=== PATIENT | female | born 1965 | race Two or more races ===

== ENCOUNTER 2019-05-13 21:20 | Inpatient (IN) | payer BC, OTHER ==
[~2019-05-13] VITALS: Ht 165.1 cm; Wt 75.9 kg
[2019-05-13] MEDS ORDERED: IV NORMAL SALINE 500 ML BAG IV ONE (21:45)
[2019-05-13] MEDS ORDERED: ONDANSETRON 4 MG/2 ML VIAL IV ONE ×2 (21:45)
[2019-05-13] MEDS ORDERED: HYDROMORPHONE 1 MG/1 ML DISP.SYRIN IV ONE (21:45)
[2019-05-13 22:05] LABS: BASOPHILS % (AUTO) 0.7 % (0.0-2.0); EOSINOPHILS % (AUTO) 0.4 % (0.0-7.0); HEMOGLOBIN 7.6 g/dL (10.9-14.3); LYMPHOCYTES % (AUTO) 20.4 % (20.5-51.5); MEAN CORPUSCULAR HEMOGLOBIN 31.7 uug (24.7-32.8); MEAN CORPUSCULAR HGB CONC 32 g/dL (32.3-35.6); MEAN CORPUSCULAR VOLUME 99.5 fL (75.5-95.3); MONOCYTES # (AUTO) 0.4 K/uL (2.0-10.0); MONOCYTES % (AUTO) 7.2 % (0.0-11.0); NEUTROPHILS # (AUTO) 3.6 K/uL (1.8-8.9); NEUTROPHILS % (AUTO) 71.3 % (38.5-71.5); PLATELET COUNT (AUTO) 63 K/uL (179-408)
[2019-05-13 22:08] LABS: RED BLOOD CELL COUNT(AUTO) 2.41 MIL/uL (3.63-4.92)
[2019-05-13 22:13] LABS: CREATININE 2.5 mg/dL (0.6-1.3); POTASSIUM 4.1 mmol/L (3.5-5.1)
[2019-05-13 22:19] LABS: BILIRUBIN,DIRECT 0.3 mg/dL (0.0-0.2); BILIRUBIN,TOTAL 0.9 mg/dL (0.2-1.0); TOTAL PROTEIN, SERUM 5.3 g/dL (6.4-8.2)
[2019-05-13] MEDS ORDERED: HYDROMORPHONE 1 MG/1 ML DISP.SYRIN ONE (22:20)
[2019-05-13] MEDS ORDERED: ONDANSETRON 4 MG/2 ML VIAL ONE ×2 (22:20→22:39)
--- NOTE | 2019-05-13 22:28 | NUR ---
engineering technology instructor Florinda called for critical lab result, Toponin of 0.852. Dr. Curry made aware.
[2019-05-13] MEDS ORDERED: FUROSEMIDE 40 MG/4 ML VIAL ONE (22:39)
--- NOTE | 2019-05-13 22:40 | NUR ---
CALL FOR BED DONE PT WILL BE ADMITTED TO TELE 324 PETRA MAGDALENO
[2019-05-13] MEDS ORDERED: NITROGLYCERIN 0.4 MG/TAB BOTTLE SL PRN (22:45)
[2019-05-13] MEDS ORDERED: FUROSEMIDE 40 MG/4 ML VIAL IV ONE (22:45)
[2019-05-13 22:50] LABS: LYMPHOCYTES % (MANUAL) 19 % (20-40); METAMYELOCYTES % 1 % (0-1); MONOCYTES % (MANUAL) 8 % (2-10); NEUTROPHILS % (MANUAL) 72 % (42-75)
--- NOTE | 2019-05-13 23:00 | NUR ---
PT WILL BE ADMITTED UNDER DR MAGDALENO DX CHF TELE RM 324 BELONGINGS LIST DONE AND SIGNED ALL BELONGINGS ACCOUNTED FOR
[2019-05-13] MEDS ORDERED: LISINOPRIL 10 MG TABLET ONE (23:21)
[2019-05-13] MEDS ORDERED: CALC667T6 PO (23:32)
[2019-05-13] MEDS ORDERED: LORA0.5T PO (23:32)
[2019-05-13] MEDS ORDERED: PROP20TA7 PO (23:32)
[2019-05-13] MEDS ORDERED: EPOE3000 IJ (23:32)
[2019-05-13] MEDS ORDERED: PANT40TA2 PO (23:32)
[2019-05-13] MEDS ORDERED: METH-406 PO (23:32)
[2019-05-13] MEDS ORDERED: OXYC5CAP18 PO (23:32)
[2019-05-13] MEDS ORDERED: CLON0.1T PO (23:32)
[2019-05-13] MEDS ORDERED: INSU100V11 (23:32)
[2019-05-13] MEDS ORDERED: GLUC1KIT IM (23:32)
[2019-05-13] MEDS ORDERED: ALBU2.5V13 NEB (23:32)
[2019-05-13] MEDS ORDERED: ERGO500040 PO (23:32)
[2019-05-13] MEDS ORDERED: LEVO112T5 PO (23:32)
[2019-05-13] MEDS ORDERED: GABA300C PO (23:32)
[2019-05-13] MEDS ORDERED: ALBU8.5H8 INH (23:32)
--- NOTE | 2019-05-13 23:47 | NUR ---
HAND OFF AND SBAR GIVEN TO GORAN RN PT WILL BE ADMITTED TO TELE RM [address] MAGDALENO DX: CHF ALL BELONGINGS W/ PT TRANSPORTED VIA [facility] FOR INCURABLESX2 UP BED AT LOWEST POSITION
--- NOTE | 2019-05-14 00:35 | NUR ---
PT WAS TRANSPORTED TO TELE 324 VIA GURNEY BP AT 126/38MMHG SPO2 AT 95% RA FULLCODE PT WAS PLACED ON SLIDER ASSISTED BY ZOYA TO TRANSFER TO BED NOTICED PT STOPPED TALKING AND ROLLED BOTH EYES FOR LESS THAN 30SECS PT AFTERWARDS RESPONDED TO LIGHT TOUCH AND NAME, ABLE TO LOOK AT SPEAKER AND COMPLIANT BUT WEAK. NON AMBULATORY. ASSISTED WITH MOVING TO ROOM 315 INSTRUCTED BY WEAPONS ENGINEER MS MARY RN BP AT 116/72MMHG WITH SPO2 AT 94% WITH OXYGEN PER NC AT 3LPM, PLACED ON TELE MONITOR PT IS NOW RESPONDING AND TALKING STATED"I DO NOT KNOW WHAT HAPPENED. I AM SLEEPY" SIDERAILSX2 UP, BED AT LOWEST POSITION
--- NOTE | 2019-05-14 00:36 | NUR ---
RECEIVED PT IN ER VIA [facility]. DX: CHF EXACERBATION. UNDER THE CARE OF DR. PATTON. PT SHOWS NO SIGNS OF ACUTE DISTRESS. ADMISSION PROCESS AND CARE PLAN INITIATED.BELONGING LIST DONE. SAFETY AND COMFORT PROVIDED. WILL CONTINUE TO MONITOR.
--- NOTE | 2019-05-14 00:38 | NUR ---
FREQUENT MONITORING FOR THE PT. PT VITAL SIGNS WITHIN NORMAL LIMIT. WILL CONTINUE TO MONITOR.
[2019-05-14 00:50] VITALS: BP 112/64
--- NOTE | 2019-05-14 03:54 | NUR ---
PT COMPLAINT OF 9/10 GENERALIZED PAIN. BRIDGET NAVAS ORDERED MORPHINE FOR PT.
[2019-05-14 04:00] VITALS: BP 130/63
[2019-05-14] MEDS ORDERED: ONDANSETRON 4 MG/2 ML VIAL IV PRN (04:00)
--- NOTE | 2019-05-14 06:32 | NUR ---
PT SLEPT INTERMITTENTLY. PT SHOWS NO SIGNS OF ACUTE DISTRESS. IV INTACT. PT ON NASAL CANNULA. MORPHINE ORDERED BUT WHEN I WAS ABOUT TO GIVE THE PT. PT WAS SLEEPING. WHEN PT WAS AWAKE PT DIDN'T ASK FOR HER PAIN MEDICATION. SAFETY AND COMFORT PROVIDED. WILL ENDORSE TO INCOMING NURSE FOR CONTINUITY OF CARE.
[2019-05-14 07:06] LABS: BASOPHILS % (AUTO) 0.6 % (0.0-2.0); EOSINOPHILS % (AUTO) 0.9 % (0.0-7.0); HEMATOCRIT 23.2 % (31.2-41.9); HEMOGLOBIN 7.5 g/dL (10.9-14.3); LYMPHOCYTES # (AUTO) 1.1 K/uL (20.0-40.0); LYMPHOCYTES % (AUTO) 23.1 % (20.5-51.5); MEAN CORPUSCULAR HEMOGLOBIN 32.3 uug (24.7-32.8); MEAN CORPUSCULAR HGB CONC 32 g/dL (32.3-35.6); MEAN CORPUSCULAR VOLUME 100.4 fL (75.5-95.3); MONOCYTES # (AUTO) 0.4 K/uL (2.0-10.0); MONOCYTES % (AUTO) 8.1 % (0.0-11.0); NEUTROPHILS # (AUTO) 3.2 K/uL (1.8-8.9); NEUTROPHILS % (AUTO) 67.3 % (38.5-71.5); PLATELET COUNT (AUTO) 54 K/uL (179-408); WHITE BLOOD COUNT (AUTO) 4.7 K/uL (3.8-11.8)
--- NOTE | 2019-05-14 07:30 | NUR ---
on bed, awake, waiting for breakfast, made aware change of time fall back, verbalized understanding. return back to sleep .
[2019-05-14 08:07] LABS: RED BLOOD CELL COUNT(AUTO) 2.31 MIL/uL (3.63-4.92)
[2019-05-14] MEDS: BLOOD SUGAR DIAGNOSTIC 1 EACH STRIP VI SCH ×4 (08:30→20:32)
[2019-05-14] MEDS ORDERED: DEXTROSE 50% 50 ML DISP.SYRIN IV PRN (08:30)
--- NOTE | 2019-05-14 08:30 | NUR ---
blood sugar refused, patient ate already. will do noon schedule
[2019-05-14 08:56] LABS: BILIRUBIN,TOTAL 0.7 mg/dL (0.2-1.0); CREATININE 2.6 mg/dL (0.6-1.3); POTASSIUM 4.4 mmol/L (3.5-5.1); TOTAL PROTEIN, SERUM 5.2 g/dL (6.4-8.2)
[2019-05-14] MEDS ORDERED: LISINOPRIL 10 MG TABLET PO ONE (09:00)
--- NOTE | 2019-05-14 09:25 | NUR ---
2d echo done, left message for dr olivier . Dr abdul also aware of result , no new order.
[2019-05-14 11:10] VITALS: BP 144/71
[2019-05-14 11:44] LABS: BAND % (MANUAL) 1 % (0-10); EOSINOPHILS % (MANUAL) 2 % (0-8); LYMPHOCYTES % (MANUAL) 22 % (20-40); METAMYELOCYTES % 1 % (0-1); MONOCYTES % (MANUAL) 8 % (2-10); NEUTROPHILS % (MANUAL) 66 % (42-75)
--- NOTE | 2019-05-14 12:00 | NUR ---
resting well, fluid restriction reinforced, patient likes her milk and soda sugarfree
[2019-05-14] MEDS: INSULIN REGULAR, HUMAN 300 UNIT/3 ML VIAL SQ PRN ×3 (12:02→20:50)
[2019-05-14] MEDS: MORPHINE SULFATE 4 MG/1 ML DISP.SYRIN IV PRN ×2 (15:24→20:46)
[2019-05-14 15:45] VITALS: BP 147/72
--- NOTE | 2019-05-14 16:00 | NUR ---
dialysis started at this time
--- NOTE | 2019-05-14 17:24 | NUR ---
bs 213, insulin not given , still on dialysis, will recheck after dialysis
--- NOTE | 2019-05-14 18:30 | NUR ---
dialysis done 2500 ml fluids obtained
--- NOTE | 2019-05-14 18:50 | NUR ---
larry valle 188, dinner served
[2019-05-14] MEDS ORDERED: LORAZEPAM 0.5 MG TABLET PO PRN (19:15)
[2019-05-14 19:44] VITALS: BP 127/58
--- NOTE | 2019-05-14 22:23 | NUR ---
patient ordered pizza despite my education about her diabetes, CHF, and other medical conditions. I advised her against ordering pizza due to the sodium contact and she replied that she still wanted to order it.
[2019-05-15 00:09] VITALS: BP 114/55
[2019-05-15] MEDS: ALBUTEROL SULFATE 2.5 MG/ 0.5 ML NEBU NEB SCH ×5 (01:30→23:34)
[2019-05-15] MEDS: MORPHINE SULFATE 4 MG/1 ML DISP.SYRIN IV PRN ×4 (04:31→23:12)
[2019-05-15 04:32] VITALS: BP 150/60
--- NOTE | 2019-05-15 05:57 | NUR ---
patient slept intermittently. a/o x1. no signs of acute distress and v/s stable throughout the night. safety and comfort measures provided at all times. patient educated this morning regarding strict fluid intake and diet. require reinforcement. will continue plan of care and endorse accordingly.
[2019-05-15] MEDS: LEVOTHYROXINE SODIUM 112 MCG TABLET PO SCH (06:10)
[2019-05-15] MEDS: PANTOPRAZOLE SODIUM 40 MG TABLET.DR PO SCH (06:10)
[2019-05-15] MEDS: BLOOD SUGAR DIAGNOSTIC 1 EACH STRIP VI SCH ×4 (06:40→21:21)
[2019-05-15] MEDS: PROPRANOLOL HCL 20 MG TABLET PO SCH ×2 (08:34→17:43)
[2019-05-15] MEDS: CALCIUM ACETATE 667 MG CAPSULE PO SCH ×3 (08:34→17:41)
[2019-05-15] MEDS: GABAPENTIN 300 MG CAPSULE PO SCH ×3 (08:34→17:41)
[2019-05-15] MEDS: INSULIN REGULAR, HUMAN 300 UNIT/3 ML VIAL SQ PRN ×3 (08:38→17:46)
--- NOTE | 2019-05-15 08:58 | NUR ---
Received pt resting in bed. Pt. denies SOB/ difficulty breathing. Pt. denies pain/ discomfort. IV in L upper arm 22 gauge intact patent saline lock. Pt. on 2 L NC. Safety measures in place. Call light within reach. will continue to monitor pt.
[2019-05-15] MEDS ORDERED: ERGOCALCIFEROL 50,000 UNIT CAPSULE PO SCH (09:00)
--- NOTE | 2019-05-15 10:20 | NUR ---
Pt. getting dialyzed with dialysis nurse. Will give rest of morning medication after and pain medication.
[2019-05-15] MEDS: METHOCARBAMOL 500 MG TABLET PO SCH ×3 (10:59→17:41)
[2019-05-15 11:33] VITALS: BP 157/67
[2019-05-15] MEDS: METOPROLOL SUCCINATE XL 25 MG TAB.SR.24H PO SCH (12:15)
[2019-05-15 15:54] VITALS: BP 124/64
--- NOTE | 2019-05-15 19:15 | NUR ---
Received pt resting in bed. No complaint of SOB, pain, or discomfort. IV in left UA 22G intact and patent. O2 NC 2L in place. Safety protocols in place. Bed alarm on. Call light within reach. Will monitor patient accordingly.
--- NOTE | 2019-05-15 19:30 | NUR ---
pt. compliant with plan of care. pt. took all medication. pt. resting in bed on 2 L NC. IV in L Upper arm 22 gauge intact patent saline. safety measures in place. all needs met. call light within reach. will endorse to pm nurse
[2019-05-15 20:02] VITALS: BP 127/60
[2019-05-15] MEDS: INSULIN REGULAR, HUMAN 300 UNITS/3 ML VIAL SQ PRN (21:27)
[2019-05-16] VITALS (9 sets, daily range): BP systolic 103–130; BP diastolic 54–70
[2019-05-16] MEDS: ALBUTEROL SULFATE 2.5 MG/ 0.5 ML NEBU NEB SCH ×3 (05:26→18:00)
[2019-05-16] MEDS: LEVOTHYROXINE SODIUM 112 MCG TABLET PO SCH (06:10)
[2019-05-16] MEDS: PANTOPRAZOLE SODIUM 40 MG TABLET.DR PO SCH (06:11)
[2019-05-16] MEDS: BLOOD SUGAR DIAGNOSTIC 1 EACH STRIP VI SCH ×4 (06:43→21:14)
--- NOTE | 2019-05-16 06:47 | NUR ---
Patient slept intermittently throughout the night, no distress noted. Ensured safety and comfort. Strict intake and output observed. Will continue plan of care and endorse accordingly.
--- NOTE | 2019-05-16 07:30 | NUR ---
Patient calm and comfortable resting in bed with no signs of distress; patient will continue to be monitored.
[2019-05-16] MEDS: CALCIUM ACETATE 667 MG CAPSULE PO SCH ×3 (08:16→17:16)
[2019-05-16] MEDS: GABAPENTIN 300 MG CAPSULE PO SCH ×3 (08:16→17:16)
[2019-05-16] MEDS: METHOCARBAMOL 500 MG TABLET PO SCH ×3 (08:16→17:16)
[2019-05-16] MEDS: METOPROLOL SUCCINATE XL 25 MG TAB.SR.24H PO SCH (08:17)
[2019-05-16] MEDS: PROPRANOLOL HCL 20 MG TABLET PO SCH ×2 (08:18→17:16)
[2019-05-16 09:06] LABS: HEPATITIS B SURFACE AB Reactive (.); HEPATITIS B SURFACE AG Negative (Negative)
[2019-05-16] MEDS: MORPHINE SULFATE 4 MG/1 ML DISP.SYRIN IV PRN ×2 (09:45→19:56)
[2019-05-16 12:14] LABS: CREATININE 2.6 mg/dL (0.6-1.3); POTASSIUM 4.4 mmol/L (3.5-5.1)
[2019-05-16] MEDS ORDERED: EPOETIN ALFA 10,000 UNITS/ML VIAL SQ ONE (12:30)
[2019-05-16 12:45] LABS: BILIRUBIN,TOTAL 0.7 mg/dL (0.2-1.0); MAGNESIUM 1.8 mg/dL (1.8-2.4); PHOSPHOROUS 3.6 mg/dL (2.5-4.9); TOTAL PROTEIN, SERUM 4.6 g/dL (6.4-8.2)
[2019-05-16 13:27] LABS: EOSINOPHILS # (AUTO) 0.1 K/uL (0.0-0.7); LYMPHOCYTES # (AUTO) 0.6 K/uL (20.0-40.0); MONOCYTES # (AUTO) 0.4 K/uL (2.0-10.0)
[2019-05-16 13:29] LABS: BASOPHILS % (AUTO) 0.6 % (0.0-2.0); EOSINOPHILS % (AUTO) 1.3 % (0.0-7.0); HEMATOCRIT 22.4 % (31.2-41.9); LYMPHOCYTES % (AUTO) 14.7 % (20.5-51.5); MEAN CORPUSCULAR HEMOGLOBIN 32.1 uug (24.7-32.8); MEAN CORPUSCULAR HGB CONC 31 g/dL (32.3-35.6); MEAN CORPUSCULAR VOLUME 102.3 fL (75.5-95.3); MONOCYTES % (AUTO) 10.2 % (0.0-11.0); NEUTROPHILS % (AUTO) 73.2 % (38.5-71.5)
[2019-05-16 13:33] LABS: RED BLOOD CELL COUNT(AUTO) 2.19 MIL/uL (3.63-4.92)
[2019-05-16 13:34] LABS: PLATELET COUNT (AUTO) 42 K/uL (179-408)
[2019-05-16] MEDS: INSULIN REGULAR, HUMAN 300 UNIT/3 ML VIAL SQ PRN ×2 (14:19→17:18)
--- NOTE | 2019-05-16 19:30 | NUR ---
Patient awake in bed. AO x 4. Complaints of pain. Will medicate appropriately. Denies SOB. IV in left A/C intact and flushing, hep lock. Safety protocols in place. Will continue to monitor
--- NOTE | 2019-05-16 19:39 | NUR ---
Patient with stable vital signs through out shift with baseline mental status.Patient had dialysis today with an output 2000ml ; MD ordered blood transfusion 1 unit due to hemoglobin of 5; transfusion will be done by oncoming nurse; report given to oncoming nurse.
--- NOTE | 2019-05-16 20:50 | NUR ---
Informed consent for blood transfusion obtained.
[2019-05-16] MEDS: INSULIN REGULAR, HUMAN 300 UNITS/3 ML VIAL SQ PRN (21:16)
[2019-05-17] VITALS (7 sets, daily range): BP systolic 104–139; BP diastolic 62–87
[2019-05-17] MEDS: ALBUTEROL SULFATE 2.5 MG/ 0.5 ML NEBU NEB SCH ×4 (01:31→19:33)
--- NOTE | 2019-05-17 01:49 | NUR ---
Blood transfusion of 1 unit ended. Vital signs taken before, during, and after are within normal limits. No signs/ symptoms of transfusion reaction. Will continue to monitor patient.
--- NOTE | 2019-05-17 05:39 | NUR ---
Patient slept intermittently throughout the night. One unit of blood given on shift. No signs/ symptoms of transfusion reaction. Vital signs within normal limits. Will endorse to oncoming shift.
[2019-05-17] MEDS: PANTOPRAZOLE SODIUM 40 MG TABLET.DR PO SCH (06:08)
[2019-05-17] MEDS: LEVOTHYROXINE SODIUM 112 MCG TABLET PO SCH (06:08)
[2019-05-17] MEDS: BLOOD SUGAR DIAGNOSTIC 1 EACH STRIP VI SCH ×4 (07:12→21:09)
--- NOTE | 2019-05-17 07:30 | NUR ---
Patient calm and comfortable with no signs of distress; patient will continue to be monitored.
[2019-05-17 07:38] LABS: BASOPHILS % (AUTO) 0.6 % (0.0-2.0); EOSINOPHILS # (AUTO) 0.1 K/uL (0.0-0.7); LYMPHOCYTES # (AUTO) 0.7 K/uL (20.0-40.0); MONOCYTES # (AUTO) 0.4 K/uL (2.0-10.0); NEUTROPHILS # (AUTO) 2.2 K/uL (1.8-8.9)
[2019-05-17 07:40] LABS: EOSINOPHILS % (AUTO) 2.2 % (0.0-7.0); HEMATOCRIT 27.7 % (31.2-41.9); HEMOGLOBIN 8.7 g/dL (10.9-14.3); LYMPHOCYTES % (AUTO) 19.6 % (20.5-51.5); MEAN CORPUSCULAR HGB CONC 32 g/dL (32.3-35.6); MEAN CORPUSCULAR VOLUME 101.2 fL (75.5-95.3); MONOCYTES % (AUTO) 12.5 % (0.0-11.0); NEUTROPHILS % (AUTO) 65.1 % (38.5-71.5); RED BLOOD CELL COUNT(AUTO) 2.74 MIL/uL (3.63-4.92); WHITE BLOOD COUNT (AUTO) 3.4 K/uL (3.8-11.8)
[2019-05-17 07:50] LABS: CREATININE 2.5 mg/dL (0.6-1.3); MAGNESIUM 1.9 mg/dL (1.8-2.4); POTASSIUM 4.8 mmol/L (3.5-5.1)
[2019-05-17 07:53] LABS: PLATELET COUNT (AUTO) 34 K/uL (179-408)
[2019-05-17] MEDS: GABAPENTIN 300 MG CAPSULE PO SCH ×3 (09:30→17:19)
[2019-05-17] MEDS: METHOCARBAMOL 500 MG TABLET PO SCH ×3 (09:30→17:19)
[2019-05-17] MEDS: CALCIUM ACETATE 667 MG CAPSULE PO SCH ×3 (09:30→17:19)
[2019-05-17] MEDS: MORPHINE SULFATE 4 MG/1 ML DISP.SYRIN IV PRN ×2 (09:38→17:19)
[2019-05-17] MEDS: METOPROLOL SUCCINATE XL 25 MG TAB.SR.24H PO SCH (09:39)
[2019-05-17] MEDS: PROPRANOLOL HCL 20 MG TABLET PO SCH ×2 (09:40→17:19)
[2019-05-17 09:52] LABS: LYMPHOCYTES % (MANUAL) 21 % (20-40); MONOCYTES % (MANUAL) 12 % (2-10); MYELOCYTES % 1 % (0-0)
[2019-05-17 09:53] LABS: NEUTROPHILS % (MANUAL) 66 % (42-75)
[2019-05-17] MEDS: INSULIN REGULAR, HUMAN 300 UNIT/3 ML VIAL SQ PRN (12:22)
--- NOTE | 2019-05-17 19:27 | NUR ---
Patient calm and comfortable through out shift ; with no signs of distress; Patient had dialysis with output of 1500ml ; patient medication compliant ; Report given to oncoming nurse.
[2019-05-17] MEDS: INSULIN REGULAR, HUMAN 300 UNITS/3 ML VIAL SQ PRN (21:14)
[2019-05-18] MEDS: ALBUTEROL SULFATE 2.5 MG/ 0.5 ML NEBU NEB SCH ×3 (00:42→13:40)
[2019-05-18] MEDS: LEVOTHYROXINE SODIUM 112 MCG TABLET PO SCH (06:02)
[2019-05-18 06:14] VITALS: BP 115/62
[2019-05-18] MEDS: BLOOD SUGAR DIAGNOSTIC 1 EACH STRIP VI SCH ×3 (06:43→16:42)
--- NOTE | 2019-05-18 06:51 | NUR ---
Patient slept intermittently. No complaints of pain throughout the shift. Patient compliant w/ meds. All needs attended. Will endorse accordingly
[2019-05-18 06:53] LABS: CREATININE 2.5 mg/dL (0.6-1.3); MAGNESIUM 1.8 mg/dL (1.8-2.4); PHOSPHOROUS 3.8 mg/dL (2.5-4.9); POTASSIUM 4.9 mmol/L (3.5-5.1)
[2019-05-18 06:55] LABS: BASOPHILS % (AUTO) 0.7 % (0.0-2.0); EOSINOPHILS # (AUTO) 0.1 K/uL (0.0-0.7); EOSINOPHILS % (AUTO) 2.6 % (0.0-7.0); HEMATOCRIT 28.2 % (31.2-41.9); HEMOGLOBIN 8.8 g/dL (10.9-14.3); LYMPHOCYTES # (AUTO) 0.8 K/uL (20.0-40.0); LYMPHOCYTES % (AUTO) 23.2 % (20.5-51.5); MEAN CORPUSCULAR HEMOGLOBIN 32.3 uug (24.7-32.8); MEAN CORPUSCULAR HGB CONC 31 g/dL (32.3-35.6); MEAN CORPUSCULAR VOLUME 103.6 fL (75.5-95.3); MONOCYTES # (AUTO) 0.5 K/uL (2.0-10.0); MONOCYTES % (AUTO) 13.2 % (0.0-11.0); NEUTROPHILS # (AUTO) 2.1 K/uL (1.8-8.9); NEUTROPHILS % (AUTO) 60.3 % (38.5-71.5); RED BLOOD CELL COUNT(AUTO) 2.72 MIL/uL (3.63-4.92); WHITE BLOOD COUNT (AUTO) 3.5 K/uL (3.8-11.8)
[2019-05-18 07:14] LABS: PLATELET COUNT (AUTO) 33 K/uL (179-408)
--- NOTE | 2019-05-18 07:19 | NUR ---
Critical lab for platelet 33L reported to Dr. Crockett w/ [facility]
[2019-05-18] MEDS: PROPRANOLOL HCL 20 MG TABLET PO SCH ×2 (08:34→16:31)
[2019-05-18] MEDS: GABAPENTIN 300 MG CAPSULE PO SCH ×3 (08:34→16:31)
[2019-05-18] MEDS: METOPROLOL SUCCINATE XL 25 MG TAB.SR.24H PO SCH (08:35)
[2019-05-18] MEDS: CALCIUM ACETATE 667 MG CAPSULE PO SCH ×3 (08:35→17:52)
[2019-05-18] MEDS: METHOCARBAMOL 500 MG TABLET PO SCH ×3 (08:35→16:31)
[2019-05-18] MEDS: MORPHINE SULFATE 4 MG/1 ML DISP.SYRIN IV PRN (08:44)
[2019-05-18] MEDS ORDERED: methylPREDNISolone SOD SUCC 40 MG/ML VIAL IV ONE (09:25)
[2019-05-18 09:39] LABS: EOSINOPHILS % (MANUAL) 1 % (0-8); LYMPHOCYTES % (MANUAL) 21 % (20-40); MONOCYTES % (MANUAL) 13 % (2-10); NEUTROPHILS % (MANUAL) 65 % (42-75)
[2019-05-18 11:40] VITALS: BP 108/49
[2019-05-18] MEDS: INSULIN REGULAR, HUMAN 300 UNIT/3 ML VIAL SQ PRN ×2 (12:32→16:45)
--- NOTE | 2019-05-18 14:43 | NUR ---
Report received this morning. Pt AAOx3, able to make needs known. Pt compliant with administration of routine medications. Pain medication requested for 8/10 pain generalized, reported effective. No acute distress noted at this time. Pt compliant with BS 162 coverage of 3 units of insulin. Pt complaint with strict I &O. VSS. Right forearm 22 heplock flushed and patent. Bed in locked and lowest position, with side rails up and call light within reach. Dialysis in process, will continue to monitor.
[2019-05-18 15:51] VITALS: BP 100/44
--- NOTE | 2019-05-18 16:01 | NUR ---
Discharge order received. Dialysis completed in 3 hrs, removing 2,000ml of fluid. VS stable. Will continue to monitor and complete discharge process.
[2019-05-18 16:31] VITALS: BP 120/68
[2019-05-18] MEDS ORDERED: ALBU2.5V13 NEB (18:02)
[2019-05-18] MEDS ORDERED: FAMO-132 PO (18:02)
[2019-05-18] MEDS ORDERED: METH4TAB3 PO (18:02)
[2019-05-18] MEDS ORDERED: METO25TA6 PO (18:02)
--- NOTE | 2019-05-18 19:18 | NUR ---
Discharge paperwork completed, reviewed with Pt, signed, and copies placed in chart. Pt refused additional pictures saying "they just took them last night". VSS. Report called and given to Sylvain GRAY supervisor floor assembly at [facility]. No home medications to return. Valuables collected and accounted for, form signed and placed in chart. Medication telephone order confirmed continuation of medications. MD to follow Pt care from facility. All discharge concerns addressed. IV removed, and Pt safely transferred to [facility] [place] [facility]. Report given to trust advisor, will remove Pt from system shortly.
== END 2019-05-18 19:32 | DRG 280 ==
LOC: ER 21:23 → TELE3 23:51 → MEDSURG3 05-15 10:12
PROVIDERS: ADMIT Internal Medicine; ATTEND Internal Medicine
PROC: 5A1D70Z Performance of Urinary Filtration, Intermittent, Less than 6 Hours Per Day (ICD-10-PCS; principal; 2019-05-14)
PROC: 30233N1 Transfusion of Nonautologous Red Blood Cells into Peripheral Vein, Percutaneous Approach (ICD-10-PCS; 2019-05-16)
DX: I13.2 Hypertensive heart and chronic kidney disease with heart failure and with stage 5 chronic kidney disease, or end stage renal disease (principal); I50.33 Acute on chronic diastolic (congestive) heart failure; I21.A1 Myocardial infarction type 2; J96.01 Acute respiratory failure with hypoxia; N18.6 End stage renal disease; E43 Unspecified severe protein-calorie malnutrition; I31.3 Pericardial effusion (noninflammatory); E87.1 Hypo-osmolality and hyponatremia; D61.818 Other pancytopenia; D68.59 Other primary thrombophilia; E11.22 Type 2 diabetes mellitus with diabetic chronic kidney disease; Z99.2 Dependence on renal dialysis; E03.9 Hypothyroidism, unspecified; D63.1 Anemia in chronic kidney disease; K74.60 Unspecified cirrhosis of liver; I08.1 Rheumatic disorders of both mitral and tricuspid valves; D69.6 Thrombocytopenia, unspecified; D63.8 Anemia in other chronic diseases classified elsewhere; Z86.74 Personal history of sudden cardiac arrest; Z79.899 Other long term (current) drug therapy; I25.10 Atherosclerotic heart disease of native coronary artery without angina pectoris; G89.29 Other chronic pain; Z87.19 Personal history of other diseases of the digestive system; F03.90 Unspecified dementia, unspecified severity, without behavioral disturbance, psychotic disturbance, mood disturbance, and anxiety; D46.9 Myelodysplastic syndrome, unspecified; E11.42 Type 2 diabetes mellitus with diabetic polyneuropathy; Z79.4 Long term (current) use of insulin
CPT/HCPCS: 36415; 70030-TC; 71045; 83550; 83690; 83735; 84100; 84443; 85025; 85730; 86704; 86706; 86850; 86900; 86901; 86920; 87340; 90937; 93005; 93307; 94640; A4663; G0378; J0885; J1170; J1815; J1940; J2270; J2405; J2920; J3490; J7040; P9016-BL; P9021